=== PATIENT | male | born 1990 | race American Indian/Alaskan Native ===

== ENCOUNTER 2019-07-07 00:47 | Observation (INO) | payer OTHER ==
[2019-07-07] MEDS ORDERED: ALBUTEROL 2.5 MG/3 ML NEBU IH ONE (01:40)
[2019-07-07] MEDS ORDERED: IPRATROPIUM 0.02% NEBU 2.5 ML IH ONE (01:40)
[2019-07-07] MEDS ORDERED: IPRATROPIUM/ALBUTEROL SULFATE 3 ML AMPUL.NEB IH ONE (06:24)
[2019-07-07] MEDS ORDERED: MAGNESIUM SULFATE 2 GM/50 ML BAG IV ONE (06:24)
[2019-07-07] MEDS ORDERED: methylPREDNISolone Sod Succinate 125 MG/2 ML INJ IV ONE (06:24)
--- NOTE | 2019-07-07 06:25 | Emergency Department Report ---
ED Shortness of Breath HPI - General Time Seen by Provider: 07/07/19 06:16 Source: patient Mode of arrival: Ambulatory Limitations: No Limitations - History of Present Illness Initial Comments: Patient is a 29-year-old male that presents emergency room with complaints of difficulties in breathing and chest pain. Patient states his symptoms been going on for 2 weeks. Patient states his chest pain is in his bilateral chest. Patient states his pain is better with rest and worse with coughing and palp ation and deep breath. Patient states he has been using his son's inhaler. Patient states she does not have a history of asthma. Patient states his cough is dry. Patient denies fever and chills. Patient states she had a recent upper respiratory infection. Patient states the pain is sharp as a 10 out of 10. MD Complaint: shortness of breath, cough, chest pain, pain with inspiration -: Sudden Severity: severe Pain Scale: 10 Quality: throbbing Consistency: constant Improves With: rest, bronchodilators Worsens With: exertion, movement Context: recent URI Associated Symptoms: chest pain, pain with inspiration, cough Treatments Prior to Arrival: bronchodilator - Related Data Home Oxygen Therapy: No Allergies Allergy/AdvReac Type Severity Reaction Status Date / Time No Known Allergies Allergy Verified 07/07/19 06:24 ED Review of Systems ROS: Stated complaint: Other details as noted in HPI Constitutional: denies: chills, fever Eyes: denies: eye pain, eye discharge, vision change ENT: denies: ear pain, throat pain Respiratory: cough, shortness of breath, SOB with exertion, SOB at rest, wheezing Cardiovascular: chest pain. denies: palpitations Endocrine: no symptoms reported Gastrointestinal: denies: abdominal pain, nausea, diarrhea Genitourinary: denies: urgency, dysuria Musculoskeletal: denies: back pain, joint swelling, arthralgia Skin: denies: rash, lesions Neurological: denies: headache, weakness, paresthesias Psychiatric: denies: anxiety, depression Hematological/Lymphatic: denies: easy bleeding, easy bruising ED Past Medical Hx - Past Medical History Previous Medical History?: No - Surgical History Past Surgical History?: No - Family History Family history: asthma - Social History Smoking Status: Never Smoker Substance Use Type: Marijuana ED Physical Exam - General Limitations: No Limitations General appearance: alert, in distress - Head Head exam: Present: atraumatic, normocephalic - Eye Eye exam: Present: normal appearance - ENT ENT exam: Present: mucous membranes moist - Neck Neck exam: Present: normal inspection - Respiratory Respiratory exam: Present: respiratory distress, wheezes, chest wall tenderness - Cardiovascular Cardiovascular Exam: Present: regular rate, normal rhythm. Absent: systolic murmur, diastolic murmur, rubs, gallop - GI/Abdominal GI/Abdominal exam: Present: soft, normal bowel sounds. Absent: distended, tenderness, guarding - Rectal Rectal exam: Present: deferred - Extremities Exam Extremities exam: Present: normal inspection - Back Exam Back exam: Present: normal inspection - Neurological Exam Neurological exam: Present: alert, oriented X3 - Psychiatric Psychiatric exam: Present: normal affect, normal mood - Skin Skin exam: Present: warm, dry, intact, normal color. Absent: rash ED Course Vital Signs 07/07/19 07/07/19 07/07/19 02:58 06:00 07:04 Temperature 98.5 F Pulse Rate 99 H 99 H Pulse Rate [ 115 H Bilateral Throughout] Respiratory 18 16 Rate Respiratory 20 Rate [Bilateral Throughout] Blood Pressure Blood Pressure 101/63 [Right] O2 Sat by Pulse 92 Oximetry 07/07/19 07/07/19 07:15 07:28 Temperature Pulse Rate 90 97 H Pulse Rate [ Bilateral Throughout] Respiratory 28 H 26 H Rate Respiratory Rate [Bilateral Throughout] Blood Pressure 122/78 Blood Pressure 122/78 [Right] O2 Sat by Pulse 91 92 Oximetry - Reevaluation(s) Reevaluation #1: Patient is still short of breath. Patient still having wheezing. Patient has received 2 breathing treatments and magnesium and Solu-Medrol. I discussed all results with patient. I discussed plan of care outpatient. Patient agrees with plan of care and admission. Patient will be admitted to the hospital service. 07/07/19 07:24 - Consultations Consultation #1: Hospitalist consult for admission. Hospitalist admit patient. 07/07/19 07:25 ED Medical Decision Making - Lab Data Result diagrams: 07/07/19 06:36 07/07/19 06:36 - EKG Data -: EKG Interpreted by Me EKG shows normal: sinus rhythm, axis, intervals, QRS complexes, ST-T waves Rate: normal - Radiology Data Radiology results: report reviewed, image reviewed interpreted by me: No acute findings on chest x-ray. - Medical Decision Making pt is a 29-year-old male that presents emergency room shortness of breath, wheezing, cough and chest pain. Patient's chest pain is not believed to be c ardiac. Patient's chest wall is tender. Patient's clinical findings consistent with status asthmaticus. Patient has no prior history of asthma. Patient given multiple medications and still having shortness of breath and wheezing. Patient was admitted to the hospital service for observation and further evaluation and treatment. Patient's labs unremarkable. Patient's chest x-ray negative. Patient's EKG shows a sinus rhythm. Patient given Solu-Medrol, antibiotics, multiple breathing treatments and magnesium and patient continued to have wheezing and shortness of breath after the treatment. - Differential Diagnosis shortness of breath. Wheezing. Cough. Chest pain. Status asthmaticus. Critical Care Time: Yes Critical care time in (mins) excluding proc time.: 35 Critical care attestation.: If time is entered above; I have spent that time in minutes in the direct care of this critically ill patient, excluding procedure time. Critical Care Time: 35 minutes ED Disposition Clinical Impression: SOB (shortness of breath) Status asthmaticus Qualifiers: Asthma severity: severe Asthma persistence: unspecified Qualified Code(s): J45.902 - Unspecified asthma with status asthmaticus Chest pain Qualifiers: Chest pain type: unspecified Qualified Code(s): R07.9 - Chest pain, unspecified Disposition: OP ADMIT IP TO THIS HOSP Is pt being admited?: Yes Does the pt Need Aspirin: No Condition: Critical Time of Disposition: 07:28
--- NOTE | 2019-07-07 06:52 | XRay Report ---
CHEST 1 VIEW INDICATION / CLINICAL INFORMATION: sob. COMPARISON: None available. FINDINGS: SUPPORT DEVICES: None. HEART / MEDIASTINUM: No significant abnormality. LUNGS / PLEURA: No significant pulmonary or pleural abnormality. No pneumothorax. ADDITIONAL FINDINGS: No significant additional findings. IMPRESSION: 1. No acute findings. Signer Name: Helena Whitehead MD Signed: 07/07/2019 6:48 AM Workstation Name: [id number]
[2019-07-07 07:06] LABS: Hematocrit 43.7 % (35.5-45.6); Hemoglobin 14.7 gm/dl (11.8-15.2); Mean Corpuscular HGB Conc 34 % (32-34); Mean Corpuscular Volume 94 fl (84-94); Platelet Count 233 K/mm3 (140-440); Red Blood Count 4.65 M/mm3 (3.65-5.03); Red Cell Distribution Width 13.5 % (13.2-15.2)
[2019-07-07 07:19] LABS: Alanine Aminotransferase 15 units/L (7-56); Albumin 4.5 g/dL (3.9-5); BUN/Creatinine Ratio 10; Blood Urea Nitrogen 9 mg/dL (9-20); Calcium 9.4 mg/dL (8.4-10.2); Hemolysis Index 10
[2019-07-07] MEDS ORDERED: CEFEPIME/NS 2 GM/100 ML 2 GM/100 ML BAG IV ONE (07:23)
[2019-07-07] MEDS ORDERED: ACETAMINOPHEN 325 MG TAB PO PRN (09:04)
[2019-07-07] MEDS ORDERED: HYDROcodone/ACETAMINOPHEN 5-325 MG TAB PO PRN (09:04)
[2019-07-07] MEDS ORDERED: hydrALAZINE 20 MG/1 ML INJ IV PRN (09:04)
--- NOTE | 2019-07-07 09:06 | History and Physical Report ---
History of Present Illness Date of examination: 07/07/19 Date of admission: 07/07/19 Chief complaint: SOB History of present illness: Patient is a 29-year-old male that presents emergency room with complaints of difficulties in breathing and associated pleuretic chest pain. His symptoms has been going on for 2 weeks. Patient states that he has been using his son's inhaler but symptom were getting worse. Last night he could not sleep and that prompted his visit to ER. Patient states his chest pain is in his bilateral chest. Patient states his pain is better with rest and worse with coughing and palpation and deep breath. Patient states she does not have a history of asthma. Patient states his cough is dry. Patient denies fever and chills. He was given breathing treatment and symptom improved some what but he still was symptomatic. CXR unremarkable. Patient was then admitted for further evaluation and MX. Past medical History: none Past surgical History: none Social History: Lives with family, denies any smoking, drinking and elicit drug abuse. Family History: no Significant h/o htn, HD, cancer, DM in the family Review of System: Constitutional: no fever, no chills, no weight loss Ears, eyes, nose, mouth and throat: no nasal congestion, no nasal discharge, no sinus pressure, no vision change, no red eye. Neck: No neck pain or rigidity. Cardiovascular: No chest pain, no orthopnea, no palpitations, no leg swelling Respiratory: + shortness of breath, + cough, + congestion, + wheezing Gastrointestinal: no abdominal pain, no nausea, no vomiting Genitourinary : no dysuria, no hematuria Musculoskeletal: no joint swelling or muscle ache Integumentary: no rash, no pruritis Neurological: no parathesias, no numbness, no tingling Endocrine: no cold or heat intolerance, no polyuria or polydipsia Hematologic/Lymphatic: no easy bruising, no easy bleeding, no gland swelling Allergic/Immunologic: no urticaria, no angioedema. Medications and Allergies Allergies Allergy/AdvReac Type Severity Reaction Status Date / Time No Known Allergies Allergy Verified 07/07/19 06:24 Active Meds: Active Medications Acetaminophen (Tylenol) 650 mg PO Q4H PRN PRN Reason: Pain MILD(1-3)/Fever >100.5/CASILLAS Acetaminophen/Hydrocodone Bitart ([place] 5/325) 2 each PO Q6H PRN PRN Reason: Pain, Moderate (4-6) Albuterol/Ipratropium (Duoneb *Not For Prn Use*) 1 ampul IH Q6HRT JOAQUÍN Docusate Sodium (Colace) 100 mg PO BID JOAQUÍN Famotidine (Pepcid) 10 mg PO BID JOAQUÍN Hydralazine HCl (Apresoline) 5 mg IV Q30MIN PRN PRN Reason: Hypertension Methylprednisolone Sodium Succinate (Solu-Medrol) 40 mg IV Q8H JOAQUÍN Exam - Physical Exam Narrative exam: GENERAL: well-developed and well-nourished AAM lying on bed appeared to be in no discomfort. HEENT: Normocephalic. Atraumatic. No conjunctival congestion or icterus. Patient has moist mucous membranes. NECK: Supple. Trachea midline. CHEST/LUNGS: Diffuse wheezes auscultated bilaterally, breathing nonlabored. No crackles or rhonchi. HEART/CARDIOVASCULAR: Regular in rate and rhythm. S1 and S2 positive. ABDOMEN: Abdomen is soft, nontender. Patient has normal bowel sounds. SKIN: There is no rash. Warm and dry. NEURO: No focal motor deficit. Follows command. MUSCULOSKELETAL: No joint effusion or tenderness. EXTRIMITY: No edema, no cyanosis or clubbing. PSYCH: Cooperative. - Constitutional Vitals: Temp Pulse Resp BP Pulse Ox 98.5 F 97 H 26 H 122/78 92 07/07/19 06:00 07/07/19 07:28 07/07/19 07:28 07/07/19 07:28 07/07/19 07:28 Results - Labs CBC & Chem 7: 07/07/19 06:36 07/07/19 06:36 - Imaging and Cardiology Chest x-ray: report reviewed Assessment and Plan Acute respiratory failure acute asthma exacerbation Acute bronchitis - - We'll admit the patient to telemetry - Will provide scheduled nebulizer breathing treatment and as needed - Place on empiric steroid and antibiotic - will get sputum culture, chest x-ray was unremarkable - Provide supplemental oxygen to keep oxygen saturation above 92% - Consider to consult pulmonary if no improvement in next 24 hours - We'll place on sliding scale of insulin as patient will be on empiric steroid - We will resume home medications, monitor BP - Provide DVT prophylaxis with Lovenox.
[2019-07-07] MEDS ORDERED: ALBUTEROL 2.5 MG/3 ML NEBU IH PRN (09:36)
[2019-07-07] MEDS ORDERED: ENOXAPARIN 40 MG/0.4 ML INJ SUB-Q SCH (10:00)
[2019-07-07] MEDS ORDERED: ENOXAPARIN 60 MG/0.6 ML INJ SUB-Q SCH (10:00)
[2019-07-07] MEDS: FAMOTIDINE 10 MG TAB PO SCH ×2 (13:39→22:02)
[2019-07-07] MEDS: DOCUSATE SODIUM 100 MG CAP PO SCH ×2 (13:39→22:02)
[2019-07-07] MEDS: methylPREDNISolone Sod Succinate 40 MG/1 ML INJ IV SCH ×2 (13:57→22:02)
[2019-07-07] MEDS ORDERED: AZITHROMYCIN 500 MG in SODIUM CHLORIDE 0.9% 250ML 250 ML IV SCH (14:30)
[2019-07-07] MEDS: IPRATROPIUM/ALBUTEROL SULFATE 3 ML AMPUL.NEB IH SCH ×3 (14:56→19:15)
[2019-07-08] MEDS: IPRATROPIUM/ALBUTEROL SULFATE 3 ML AMPUL.NEB IH SCH ×2 (03:43→07:28)
[2019-07-08] MEDS ORDERED: guaiFENesin 100 MG/5 ML ORAL LIQD PO PRN (04:21)
[2019-07-08] MEDS: methylPREDNISolone Sod Succinate 40 MG/1 ML INJ IV SCH (05:00)
[2019-07-08 07:25] VITALS: BP 119/64
--- NOTE | 2019-07-08 11:47 | Discharge Summary ---
Providers - Providers Date of Admission: 07/07/19 07:30 Date of discharge: 07/08/19 Attending physician: DAVID REESE Primary care physician: ERUM DIAZ MD Hospitalization Condition: Critical Pertinent studies: Chest x-ray: No acute findings Hospital course: 32-year-old male with no prior medical history admitted to the hospital due to hypoxia and diffuse wheezing. Patient was admitted to medical floor with scheduled nebs, iv abx, iv steroids and supplemental O2 to keep O2 sat at 94%. CXR showed no infiltrates. Patients symptom was improving with medical management. However patient decided to leave AMA next day before event seen by MEdwinD. Discharge diagnosis: Acute respiratory failure acute asthma exacerbation Acute bronchitis Disposition: LEFT AGAINST MED ADVICE Core Measure Documentation - Palliative Care Palliative Care/ Comfort Measures: Not Applicable - Core Measures Any of the following diagnoses?: none Exam - Constitutional Vitals: Temp Pulse Resp BP Pulse Ox 98.0 F 84 18 119/64 97 07/08/19 05:50 07/08/19 07:30 07/08/19 07:30 07/08/19 05:50 07/08/19 07:31 Plan Follow up with: ERUM DIAZ MD [Primary Care Provider] - 7 Days
== END 2019-07-08 08:45 | disposition left against medical advice (07) ==
LOC: ED 00:47 → 3A 07:30
PROVIDERS: ADMIT Internal Medicine; ATTEND Internal Medicine
DX: J96.00 Acute respiratory failure, unspecified whether with hypoxia or hypercapnia (principal); J45.902 Unspecified asthma with status asthmaticus; J20.9 Acute bronchitis, unspecified
CPT/HCPCS: 36415; 71045; 80053; 85027; 93005; 93010; 94640; 94644; 94760; 96365; 96367; 96368; 96372; 96375; 96376; 99291; G0378; J0456; J0692; J1650; J2920; J2930; J3475; J7050

== ENCOUNTER 2021-05-21 22:01 | Emergency (ER) | payer OTHER ==
[2021-05-21 23:53] VITALS: BP 118/70
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
== END 2021-05-22 02:16 | disposition home or self-care (01) ==
LOC: ED 22:01
DX: S09.90XA Unspecified injury of head, initial encounter (principal); V49.09XA Driver injured in collision with other motor vehicles in nontraffic accident, initial encounter; Y93.89 Activity, other specified; Y92.481 Parking lot as the place of occurrence of the external cause; Y99.8 Other external cause status
CPT/HCPCS: 70450; 99283